=== PATIENT | male | born 1950 | race African-American/Black ===

== ENCOUNTER → 2020-06-03 | Emergency (ER) | payer MEDICARE, OTHER ==
[~2020-06-03] VITALS: Ht 180.3 cm; Wt 93.9 kg
[~2020-06-03] MED LIST: DOCU-141 PO
--- NOTE | 2020-06-03 11:12 | NUR ---
MAU 62 FROM HOME C/O ANXIETY ATTACK "IM NOT ABLE TO SLEEP FOR WEEKS DEVANTE BEEN THINKING ABOUT MY GLAUCOMA". TO ER BED 11, HOOKED TO MONITOR, CHANGED TO HOSP GOWN, WARM BLANKET PROVIDED, PATIENT AAO x4. AWAITING MD CHUNG
--- NOTE | 2020-06-03 11:40 | NUR ---
DR BEVERLY AT BEDSIDE
[2020-06-03 12:12] LABS: BASOPHILS % (AUTO) 0.5 % (0.0-2.0); EOSINOPHILS % (AUTO) 0.6 % (0.0-6.0); HEMATOCRIT 42 % (39-51); HEMOGLOBIN 13.9 g/dL (13.5-17.5); LYMPHOCYTES # (AUTO) 1.1 /CMM (0.8-4.8); LYMPHOCYTES % (AUTO) 14.9 % (20.0-44.0); MEAN CORPUSCULAR HGB CONC 33 g/dl (31.0-36.0); MEAN CORPUSCULAR VOLUME 92 fL (80-96); MONOCYTES # (AUTO) 0.6 /CMM (0.1-1.30); MONOCYTES % (AUTO) 8.4 % (2.0-12.0); NEUTROPHILS # (AUTO) 5.5 /CMM (1.8-8.9); NEUTROPHILS % (AUTO) 75.6 % (43.0-81.0); PLATELET COUNT (AUTO) 152 /CMM (150-450); RED BLOOD CELL COUNT(AUTO) 4.56 MIL/uL (4.5-6.0); WHITE BLOOD COUNT (AUTO) 7.3 K/uL (4.3-11.0)
[2020-06-03 12:17] LABS: CALCIUM, SERUM 8.9 mg/dL (8.5-10.1); CREATININE 1.2 mg/dL (0.6-1.3); POTASSIUM 3.8 mmol/L (3.5-5.1)
[2020-06-03 13:12] VITALS: BP 131/75
--- NOTE | 2020-06-03 13:13 | NUR ---
The patient is alert and oriented x4. Denies pain. In room air and denies SOB. Respiration regular and unlabored.Patient discharged to home in stable condition. Written and verbal after care instructions given. Patient verbalizes understanding of instruction. The patient left ER in stable condition.
== END | disposition home or self-care (01) ==
LOC: ER 11:18
DX: G47.00 Insomnia, unspecified (principal); K59.00 Constipation, unspecified; F17.210 Nicotine dependence, cigarettes, uncomplicated; Z88.0 Allergy status to penicillin; Z88.5 Allergy status to narcotic agent; Z60.2 Problems related to living alone
CPT/HCPCS: 36415; 80048-TC; 85025-TC